=== PATIENT | male | born 1990 | race Caucasian/White ===

== ENCOUNTER 2017-11-15 15:38 | Emergency (ER) | payer SELFPAY ==
[2017-11-15 16:06] VITALS: BP 110/69
[2017-11-15] MEDS ORDERED: TETRACAINE HCL 0.5% OPH SOLN 2 ML OS ONE (16:08)
--- NOTE | 2017-11-15 16:48 | ER Document Report ---
ED Eye Complaint - General Chief Complaint: Eye Problem Stated Complaint: EYE ISSUE Time Seen by Provider: 11/15/17 16:04 TRAVEL OUTSIDE OF THE [place] IN LAST 30 DAYS: No - HPI Notes: 27-year-old male who wears contact lenses presents with painful red left eye. Patient states he felt sick to his contact lenses and woke up with a "half off and have fine". Has some red burning irritating clear drainage, mild photophobia. Gradual onset, nonradiating. No other modifying factors, no other associated symptoms, no other provocative or palliative factors. - Related Data Allergies/Adverse Reactions: No Known Allergies Allergy (Unverified 11/15/17 15:41) Past Medical History - Social History Smoking Status: Current Every Day Smoker Chew tobacco use (# tins/day): No Frequency of alcohol use: Occasional Drug Abuse: Marijuana Family History: Reviewed & Not Pertinent Patient has suicidal ideation: No Patient has homicidal ideation: No - Medical History Medical History: Negative Renal/ Medical History: Denies: Hx Peritoneal Dialysis Review of Systems - Review of Systems Notes: Review of systems as in history of present illness, otherwise no significant headache, chest pain, abdominal pain. Physical Exam - Vital signs Vitals: Temp Pulse Resp BP Pulse Ox 97.9 F 76 16 110/69 98 11/15/17 16:04 11/15/17 16:04 11/15/17 16:04 11/15/17 16:04 11/15/17 16:04 - Notes Notes: General: Well devloped, no acute distress. HEENT: Normocephalic, atraumatic. Pupils equal round reactive to light. Mucosa moist. No JVD. Left conjunctival injection noted. Chest: No trauma, normal excursion. Respiratory: Good air exchange, normal excursion. Cardiac: Regular rhythm Abdomen: Soft, benign. Nondistended. Back: No asymmetry or gross abnormality. Motor: Grossly normal power and tone. Neurologic: Alert, nonfocal. Vascular: Well perfused Skin: No petechiae or purpura Course - Re-evaluation Re-evalutation: 11/15/17 16:45 Appearing male with likely conjunctivitis secondary to contact lens. Fluorescein stain is applied after tetracaine anesthesia, Rocha lamp was used to examine. No evidence of dye uptake. Patient is discharged home with a prescription for Cipro ophthalmic drops, will follow-up with his eye doctor. Return if worsening. - Vital Signs Vital signs: Temp Pulse Resp BP Pulse Ox 97.9 F 76 16 110/69 98 11/15/17 16:04 11/15/17 16:04 11/15/17 16:04 11/15/17 16:04 11/15/17 16:04 Discharge - Discharge Clinical Impression: Conjunctivitis Qualifiers: Conjunctivitis type: acute Acute conjunctivitis type: unspecified Laterality: left Qualified Code(s): H10.32 - Unspecified acute conjunctivitis, left eye Condition: Good Disposition: HOME, SELF-CARE Instructions: Conjunctivitis ([facility]) Prescriptions: Ciprofloxacin HCl [Ciloxan] 2 drp OS Q4 #1 bottle Referrals: LOCALMD,NO [Primary Care Provider] - Follow up as needed
== END 2017-11-15 16:55 | disposition home or self-care (01) ==
LOC: ER 15:38
DX: H10.32 Unspecified acute conjunctivitis, left eye (principal); H53.142 Visual discomfort, left eye; F17.200 Nicotine dependence, unspecified, uncomplicated
CPT/HCPCS: 99282

== ENCOUNTER 2017-12-01 21:29 | Emergency (ER) | payer SELFPAY ==
[2017-12-01 21:36] VITALS: BP 117/68
[2017-12-02] MEDS ORDERED: LIDOCAINE 0.5%/EPINEPHRINE INJ 50 ML VIAL INJ ONE (00:09)
[2017-12-02] MEDS ORDERED: BUPIVACAINE HCL 0.25 % INJ/PF (2.5 MG/1 ML) 30 ML VIAL INJ ONE (00:10)
--- NOTE | 2017-12-02 00:14 | ER Document Report ---
ED General - General Mode of Arrival: Ambulatory Information source: Patient TRAVEL OUTSIDE OF THE [place] IN LAST 30 DAYS: No <LINDSAY LANGLEY - Last Filed: 12/02/17 00:36> <CARLOS APONTE - Last Filed: 12/02/17 03:07> - General Chief Complaint: Abscess Stated Complaint: ABSCESS Time Seen by Provider: 12/01/17 23:36 Notes: Patient is a 27 year old male presenting to the emergency department complaining of an abscess in his mouth. Patient states the abscess is located on the roof of his mouth on the right side. Patient denies any nausea or vomiting. (LINDSAY LANGLEY) - Related Data Allergies/Adverse Reactions: No Known Allergies Allergy (Unverified 11/15/17 15:41) Past Medical History - General Information source: Patient - Social History Smoking Status: Current Every Day Smoker Cigarette use (# per day): Yes Chew tobacco use (# tins/day): No Frequency of alcohol use: Social Family History: Reviewed & Not Pertinent <LINDSAY LANGLEY - Last Filed: 12/02/17 00:36> Review of Systems - Review of Systems Constitutional: No symptoms reported EENT: See HPI Cardiovascular: No symptoms reported Respiratory: No symptoms reported Gastrointestinal: No symptoms reported Genitourinary: No symptoms reported Male Genitourinary: No symptoms reported Musculoskeletal: No symptoms reported Skin: No symptoms reported Hematologic/Lymphatic: No symptoms reported Neurological/Psychological: No symptoms reported -: Yes All other systems reviewed and negative <LINDSAY LANGLEY - Last Filed: 12/02/17 00:36> Physical Exam <LINDSAY LANGLEY - Last Filed: 12/02/17 00:36> - Vital signs Interpretation: Normal - General General appearance: Appears well, Alert - HEENT Head: Normocephalic, Atraumatic Eyes: Normal Pupils: PERRL Mouth/Lips: Normal Pharynx: Normal Neck: Normal - Respiratory Respiratory status: No respiratory distress Chest status: Nontender Breath sounds: Normal Chest palpation: Normal - Cardiovascular Rhythm: Regular Heart sounds: Normal auscultation Murmur: No - Abdominal Inspection: Normal Distension: No distension Bowel sounds: Normal Tenderness: Nontender Organomegaly: No organomegaly - Back Back: Normal, Nontender - Extremities General upper extremity: Normal inspection, Nontender, Normal color, Normal ROM , Normal temperature General lower extremity: Normal inspection, Nontender, Normal color, Normal ROM , Normal temperature, Normal weight bearing. No: Trevor's sign - Neurological Neuro grossly intact: Yes Cognition: Normal Orientation: AAOx4 Shaheed Coma Scale Eye Opening: Spontaneous Shaheed Coma Scale Verbal: Oriented Shaheed Coma Scale Motor: Obeys Commands Vidalia Coma Scale Total: 15 Speech: Normal Motor strength normal: LUE, RUE, LLE, RLE Sensory: Normal - Psychological Associated symptoms: Normal affect, Normal mood - Skin Skin Temperature: Warm Skin Moisture: Dry Skin Color: Normal <CARLOS APONTE - Last Filed: 12/02/17 03:07> - Vital signs Vitals: Temp Pulse Resp BP Pulse Ox 98.0 F 90 15 117/68 98 12/01/17 21:35 12/01/17 21:35 12/01/17 21:35 12/01/17 21:35 12/01/17 21:35 - HEENT Notes: abscess medial to upper right posterior dentition (CARLOS APONTE) Course <LINDSAY LANGLEY - Last Filed: 12/02/17 00:36> <CARLOS APONTE - Last Filed: 12/02/17 03:07> - Re-evaluation Re-evalutation: 12/02/17 Patient is a 27-year-old male with poor dentition who smokes who comes in complaining of swelling next to his upper right gumline. Please see procedure note for incision and drainage. Small amount of serous/purulent fluid came out. Patient is instructed to brush his teeth, use Listerine, and follow-up with the dentist. He has been given a list of local providers. He will be discharged home with clindamycin and is to return if he has any worsening or concerning symptoms. He is also been strongly advised to stop smoking. Understands and agrees with plan. Stable for discharge. (CARLOS APONTE) - Vital Signs Vital signs: Temp Pulse Resp BP Pulse Ox 98.0 F 90 15 117/68 98 12/01/17 21:35 12/01/17 21:35 12/01/17 21:35 12/01/17 21:35 12/01/17 21:35 Procedures - Incision and Drainage Right Upper Face Time completed: 02:00 Type: Simple Anesthetic type: 1% Lidocaine w/epi, 0.5% Bupivacaine Blade size: 11 Incision Method: Incision made by scalpel <CARLOS APONTE - Last Filed: 12/02/17 03:07> Discharge <LINDSAY LANGLEY - Last Filed: 12/02/17 00:36> <CARLOS APONTE - Last Filed: 12/02/17 03:07> - Discharge Clinical Impression: Dental abscess Condition: Stable Disposition: HOME, SELF-CARE Instructions: Dental Infection or Abscess ([facility]) Additional Instructions: Use Listerine as often as possible, brush your teeth twice daily, see a dentist as soon as possible. Stop smoking. Prescriptions: Clindamycin HCl 300 mg PO TID #30 capsule Forms: Smoking Cessation Education Scribe Attestation: 12/02/17 03:07 I personally performed the services described in the documentation, reviewed and edited the documentation which was dictated to the scribe in my presence, and it accurately records my words and actions. (CARLOS APONTE) Scribe Documentation - Scribe Written by Dalia:: Dalia Nunes, 12/02/2017 00:37 acting as scribe for :: Brandon <LINDSAY LANGLEY - Last Filed: 12/02/17 00:36>
[2017-12-02] MEDS ORDERED: CLINDAMYCIN HCL 150 MG CAPSULE PO ONE (01:29)
== END 2017-12-02 02:29 | disposition home or self-care (01) ==
LOC: ER 21:29
DX: K04.7 Periapical abscess without sinus (principal); F17.210 Nicotine dependence, cigarettes, uncomplicated
CPT/HCPCS: 99283; 41800; J3490

== ENCOUNTER 2018-08-14 02:26 | Emergency (ER) | payer SELFPAY ==
[2018-08-14] MEDS ORDERED: NORMAL SALINE 1000 ML 1,000 ML IV ONE ×2 (03:00)
[2018-08-14] MEDS ORDERED: LORAZEPAM INJ 2 MG/1 ML VIAL IV ONE (03:14)
[2018-08-14 03:25] LABS: ABSOLUTE BASOPHILS # (AUTO) 0.1 10^3/uL (0.0-0.2); ABSOLUTE EOSINOPHILS # (AUTO) 0.1 10^3/uL (0.0-0.6); ABSOLUTE LYMPHOCYTES (AUTO) 2.4 10^3/uL (0.5-4.7); ABSOLUTE MONOCYTES (AUTO) 1.5 10^3/uL (0.1-1.4); ABSOLUTE NEUT (AUTO) 15.4 10^3/uL (1.7-8.2); BASOPHILS % (AUTO) 0.3 % (0-2); EOSINOPHILS % (AUTO) 0.4 % (0-6); HEMATOCRIT 47.6 % (37.9-51.0); HEMOGLOBIN 16.2 g/dL (13.5-17.0); LYMPHOCYTES % (AUTO) 12.4 % (13-45); MEAN CORPUSCULAR HEMOGLOBIN 28.6 pg (27.0-33.4); MEAN CORPUSCULAR VOLUME 84 fl (80-97); MONOCYTES % (AUTO) 7.7 % (3-13); PLATELET COUNT 391 10^3/uL (150-450); RED BLOOD COUNT 5.66 10^6/uL (4.35-5.55); RED CELL DISTRIBUTION WIDTH 14.5 % (11.5-14.0); SEGMENTED NEUTROPHILS % (AUTO) 79.2 % (42-78); TOTAL CELLS COUNTED % (AUTO) 100 %; WHITE BLOOD COUNT 19.5 10^3/uL (4.0-10.5)
--- NOTE | 2018-08-14 03:37 | RADIOLOGY REPORT (SQ) ---
EXAM DESCRIPTION: XR CHEST 1 VIEW COMPLETED DATE/TME: 08/14/2018 03:02 CLINICAL HISTORY: 28 years, Male, chest pain COMPARISON: None. NUMBER OF VIEWS: One TECHNIQUE: AP view of the chest LIMITATIONS: None. FINDINGS: There is subcutaneous emphysema supraclavicular regions with pneumomediastinum. There is no focal consolidation. The heart is normal in size. There is no pneumothorax or pleural effusion. The bones are unremarkable. IMPRESSION: Subcutaneous emphysema with pneumomediastinum. Further evaluation with a CT may be useful. copyright 2010 [employer]- All Rights Reserved
--- NOTE | 2018-08-14 03:42 | ER Document Report ---
Addendum entered and electronically signed by VINITA ANDERSON PA 08/14/18 07:47: Critical Care Note - Critical Care Note Total time excluding time spent on procedures (mins): 40 - Pneumomediastinum, nuchal air Comments: Please allow 40 minutes of critical care time for evaluation and management of patient with methamphetamine use, pneumomediastinum, nuchal air, air in the spinal space, pneumothorax. Interventions including IV fluids, Ativan. Multiple re-evaluations. Time spent in discussion and transfer patient to tertiary center for trauma care. Original Note: ED General - General TRAVEL OUTSIDE OF THE [place] IN LAST 30 DAYS: No <VINITA ANDERSON - Last Filed: 08/14/18 05:44> <LITA GARCIA - Last Filed: 08/14/18 05:52> - General Chief Complaint: Chest Pain Stated Complaint: CHEST PAIN Time Seen by Provider: 08/14/18 02:53 Notes: Patient is a 28-year-old male that comes to the emergency department for chief complaint of a strange feeling in his chest. He states that he was trying to get contact out of his eye which was bothering him, he states that when he tilted his head back he felt like he swallowed something that went down into his chest and started to give him discomfort. Patient was complaining of chest pain, came by EMS, was given 324 mg of aspirin and 3 sublingual nitroglycerin. When asked patient admits that he snorted methamphetamine tonight. He states he does this occasionally. He also smokes marijuana, he denies cocaine, heroin, or any other recreational substance. He denies any daily prescribed medications, he denies any medical problems that he is treated for. Significant other at bedside. (VINITA ANDERSON) - Related Data Allergies/Adverse Reactions: No Known Allergies Allergy (Unverified 11/15/17 15:41) Past Medical History - General Information source: Patient, Relative - Significant other - Social History Smoking Status: Current Every Day Smoker Drug Abuse: Methamphetamine Lives with: Spouse/Significant other Family History: Reviewed & Not Pertinent Patient has suicidal ideation: No Patient has homicidal ideation: No Renal/ Medical History: Denies: Hx Peritoneal Dialysis <VINITA ANDERSON - Last Filed: 08/14/18 05:44> Review of Systems - Review of Systems Constitutional: No symptoms reported EENT: See HPI Cardiovascular: See HPI Respiratory: See HPI Gastrointestinal: No symptoms reported Genitourinary: No symptoms reported Male Genitourinary: No symptoms reported Musculoskeletal: No symptoms reported Skin: No symptoms reported Hematologic/Lymphatic: No symptoms reported Neurological/Psychological: No symptoms reported <VINITA ANDERSON - Last Filed: 08/14/18 05:44> Physical Exam <VINITA ANDERSON - Last Filed: 08/14/18 05:44> - Vital signs Vitals: Pulse Ox 100 08/14/18 02:31 - Notes Notes: GENERAL: Alert and conversational, appears anxious HEAD: Normocephalic, atraumatic. EYES: Pupils equal, round, and reactive to light. Extraocular movements intact. ENT: Oral mucosa moist, tongue midline. Oropharynx unremarkable. Airway patent. Nares patent, no nasal septal hematoma, TM's intact. NECK: Full range of motion. Supple. Trachea midline. LUNGS: Clear to auscultation bilaterally, no wheezes, rales, or rhonchi. No respiratory distress. No signs of trauma. HEART: Tachycardic, normal rhythm, no murmur ABDOMEN: Soft, non-tender. Non-distended. Bowel sounds present in all 4 quadrants. GENITOURINARY: Deferred EXTREMITIES: Moves all 4 extremities spontaneously. No edema, normal radial and dorsalis pedis pulses bilaterally. No cyanosis. BACK: no cervical, thoracic, lumbar midline tenderness. No saddle anesthesia, normal distal neurovascular exam. NEUROLOGICAL: Alert but confused to events. PSYCH: Restless, irritable, intermittently agitated SKIN: Slightly flushed (VINITA ANDERSON) Course - Laboratory Result Diagrams: 08/14/18 02:59 08/14/18 03:53 <VINITA ANDERSON - Last Filed: 08/14/18 05:44> - Laboratory Result Diagrams: 08/14/18 02:59 08/14/18 03:53 <LITA GARCIA - Last Filed: 08/14/18 05:52> - Re-evaluation Re-evalutation: On initial evaluation patient is agitated, tachypneic, tachycardic. He does report methamphetamine use. He does have clear lung sounds bilaterally. No signs of trauma. He is alert and cooperative. He has a somewhat bizarre reported history but otherwise he is conversational and oriented to person and place. EKG showing sinus tachycardia at a rate of 143, QTC of 444. 08/14/18 04:30 Chest x-ray obtained and shows pneumomediastinum. I asked patient if he had trauma or fall, he states he did not, he does recall that earlier this afternoon/evening he did do a flip into a small pool. He cannot recall any other significant events. Patient is not hypoxic but he remains tachycardic, he has been given IV fluids and Ativan because of his methamphetamine use, blood pressure is now 130s over 70s, heart rate is 107, respiratory rate is 20. CAT scan pending to evaluate pneumomediastinum further. Patient does have crepitus over the chest/neck on exam. However he is talkative, not hypoxic, not in respiratory distress. Discussed with Dr. Garcia. CAT scan is very concerning, showing extensive pneumomediastinum, air tracking into the axilla, air tracking into the nuchal areas, air tracking the spinal column. Covering with Unasyn. Updated Dr. Garcia, patient was evaluated at [facility] by Dr. Garcia. 08/14/18 05:[address] Spencer, on-call and [facility] Trauma services, patient accepted for transfer. Patient somewhat irritable but he does state agreement with this plan. 08/14/18 05:35 Patient reevaluated at bedside, helicopter is almost here, patient not tachypneic, voices not changed, he is not hypoxic, vital signs have not changed. No worsening condition from prior. Airway is stable. Stable for transport. (VINITA ANDERSON) 08/14/18 05:50 Did evaluate the patient personally. Patient does have some crepitance going into the upper chest. Neck is very swollen. He does have a little bit crepitance at the base of neck. He is able to speak in full sentences. He does not have any respiratory distress. His oxygen saturation 100% on room air. He says he does feel a little bit of pressure in the neck but is otherwise maintaining his airway at this time. I did discuss with the patient there is potential that he could have worsening edema and crepitance into the neck which could cause us to need to intubate him. I did discuss this with Dr. Spencer, trauma surgeon divided. I informed her at this time I do not feel that I need to emergently intubate him some ankle however, if you were to worsen I would have to do this and likely place bilateral chest tubes due to his very small bilateral pneumothoraces which would definitely get much worse after intubation. She is agreeable with this. She is agreeable with this waiting at this time. My initial concern was that the patient had to go by a months and that would be an hour and a half truck ride until she would get to [facility]. Fortunately they are flying therefore there is not a long transport time between facilities and therefore I feel comfortable letting the patient go without intubation as long as he continue remained stable which she did. This helps avoid having to place bilateral chest tubes and help avoiding further procedures which can of course have some complications themselves. I did explain all this to the patient he is agreeable to it. Patient just left via helicopter to be taken to [facility] and did not have any further worsening at the time of leaving. Dictation of this chart was performed using voice recognition software; therefore, there may be some unintended grammatical errors. (LITA GARCIA) - Vital Signs Vital signs: Temp Pulse Resp BP Pulse Ox 97.6 F 11 L 128/76 H 100 08/14/18 05:18 08/14/18 05:01 08/14/18 05:01 08/14/18 05:01 - Laboratory Laboratory results interpreted by me: 08/14/18 08/14/18 02:59 03:53 WBC 19.5 H RBC 5.66 H RDW 14.5 H Seg Neutrophils % 79.2 H Lymphocytes % 12.4 L Absolute Neutrophils 15.4 H Absolute Monocytes 1.5 H Carbon Dioxide 17 L Calcium 11.2 H Discharge <VINITA ANDERSON - Last Filed: 08/14/18 05:44> <LITA GARCIA - Last Filed: 08/14/18 05:52> - Discharge Clinical Impression: Pneumomediastinum, Methamphetamine abuse, Tachycardia Chest pain Qualifiers: Chest pain type: unspecified Qualified Code(s): R07.9 - Chest pain, unspecified Pneumothorax Qualifiers: Pneumothorax type: unspecified pneumothorax Qualified Code(s): J93.9 - Pneumothorax, unspecified Condition: Serious Disposition: [facility]
[2018-08-14 04:49] LABS: ALANINE AMINOTRANSFERASE 39 U/L (21-72); ALBUMIN 4.7 g/dL (3.5-5.0); ALKALINE PHOSPHATASE 46 U/L (38-126); ANION GAP 19 (5-19); ASPARTATE AMINO TRANSFERASE 24 U/L (17-59); BILIRUBIN,TOTAL 0.9 mg/dL (0.2-1.3); BLOOD UREA NITROGEN 20 mg/dL (7-20); CALCIUM 11.2 mg/dL (8.4-10.2); CARBON DIOXIDE 17 mmol/L (22-30); CHLORIDE 107 mmol/L (98-107); GLUCOSE 103 mg/dL (75-110); SODIUM 142.5 mmol/L (137-145); TOTAL PROTEIN 7.3 g/dL (6.3-8.2)
--- NOTE | 2018-08-14 04:51 | RADIOLOGY REPORT (SQ) ---
EXAM DESCRIPTION: CT NECK CHEST WITH IV CONTRAST, CT CHEST WITH IV CONTRAST COMPLETED DATE/TME: 08/14/2018 04:11 (accession [id number]), 08/14/2018 03:49 (accession [id number]) CLINICAL HISTORY: 28 years Male, neck swelling Comparison: None. Technique: IV contrast. Coronal and sagittal reformat. This exam was performed according to our departmental dose-optimization program, which includes automated exposure control, adjustment of the mA and/or kV according to patient size and/or use of iterative reconstruction technique. [facility]: Dose Right [facility]: CareDose [facility]: Dose Right [facility]: Teradose 4D [facility]: [employer] LIMITATIONS: None Findings: Orbits, paranasal sinuses, and skull base: Normal. Nasopharynx: Normal. Suprahyoid neck: Normal oropharynx, oral cavity, parapharyngeal space, and retropharyngeal space. Infrahyoid neck: Normal larynx, hypopharynx, and supraglottis. Thyroid: Normal. Thoracic inlet: Normal lung apices and brachial plexus. Small right axillary and proximal right upper arm soft tissue gas. Chest: Extensive pneumomediastinum. Trace pneumothoraces/"apical air cap" with pleural separation 0.3 cm at the lung apices. No pleural effusion. Lungs, airway, lymphatics, heart, vasculature, upper abdomen, and musculoskeleton appear otherwise unremarkable. Lymph nodes: Normal. No lymphadenopathy. Vascular structures: Normal. Other findings: Extensive soft tissue emphysema of the neck and mediastinum, likely spontaneous. There is moderate extensive air in the cervical and thoracic spinal canal without significant cord compression. Visualized cranium shows no evidence of pneumocephalus. Esophagus appears grossly intact. Impression: Extensive pneumomediastinum, nuchal soft tissue emphysema, and soft tissue emphysema of the right upper arm/axilla.Trace biapical pneumothoraces. Pneumorrhachis - air in the spinal canal. Differential etiologies include recent high intrathoracic pressures (cough, etc), complication of asthma, and trauma.
--- NOTE | 2018-08-14 04:51 | RADIOLOGY REPORT (SQ) ---
EXAM DESCRIPTION: CT NECK CHEST WITH IV CONTRAST, CT CHEST WITH IV CONTRAST COMPLETED DATE/TME: 08/14/2018 04:11 (accession [id number]), 08/14/2018 03:49 (accession [id number]) CLINICAL HISTORY: 28 years Male, neck swelling Comparison: None. Technique: IV contrast. Coronal and sagittal reformat. This exam was performed according to our departmental dose-optimization program, which includes automated exposure control, adjustment of the mA and/or kV according to patient size and/or use of iterative reconstruction technique. [facility]: Dose Right [facility]: CareDose [facility]: Dose Right [facility]: Teradose 4D [facility]: [employer] LIMITATIONS: None Findings: Orbits, paranasal sinuses, and skull base: Normal. Nasopharynx: Normal. Suprahyoid neck: Normal oropharynx, oral cavity, parapharyngeal space, and retropharyngeal space. Infrahyoid neck: Normal larynx, hypopharynx, and supraglottis. Thyroid: Normal. Thoracic inlet: Normal lung apices and brachial plexus. Small right axillary and proximal right upper arm soft tissue gas. Chest: Extensive pneumomediastinum. Trace pneumothoraces/"apical air cap" with pleural separation 0.3 cm at the lung apices. No pleural effusion. Lungs, airway, lymphatics, heart, vasculature, upper abdomen, and musculoskeleton appear otherwise unremarkable. Lymph nodes: Normal. No lymphadenopathy. Vascular structures: Normal. Other findings: Extensive soft tissue emphysema of the neck and mediastinum, likely spontaneous. There is moderate extensive air in the cervical and thoracic spinal canal without significant cord compression. Visualized cranium shows no evidence of pneumocephalus. Esophagus appears grossly intact. Impression: Extensive pneumomediastinum, nuchal soft tissue emphysema, and soft tissue emphysema of the right upper arm/axilla.Trace biapical pneumothoraces. Pneumorrhachis - air in the spinal canal. Differential etiologies include recent high intrathoracic pressures (cough, etc), complication of asthma, and trauma.
[2018-08-14] MEDS ORDERED: AMPICILLIN SOD/SULBACTAM 3 GM VIAL IV ONE (04:56)
[2018-08-14] MEDS ORDERED: AMPICILLIN SOD/SULBACTAM 3 GM VIAL ONE (04:57)
[2018-08-14 05:13] VITALS: BP 128/76
[2018-08-14 05:26] LABS: ALCOHOL < 10 mg/dL (NONE DETECTED); BILIRUBIN,DIRECT 0.3 mg/dL (0.0-0.4)
--- NOTE | 2018-08-14 06:30 | EKG REPORT ---
SEVERITY:- OTHERWISE NORMAL ECG - SINUS TACHYCARDIA : Confirmed by: René Louis MD 14-Aug-2018 06:29:41
== END 2018-08-14 05:44 | disposition short-term general hospital (02) ==
LOC: ER 02:26
DX: J98.2 Interstitial emphysema (principal); J93.9 Pneumothorax, unspecified; F15.10 Other stimulant abuse, uncomplicated; R00.0 Tachycardia, unspecified; F17.200 Nicotine dependence, unspecified, uncomplicated; R07.9 Chest pain, unspecified; R41.0 Disorientation, unspecified
CPT/HCPCS: 93005; 99291; 96375; 96365; 36415; 80307; 85025; 80053; 84484; 71045; 70491; 71260; 93010; J0295; J2060; J7030